=== PATIENT | female | born 1970 | race Caucasian/White ===

== ENCOUNTER 2022-06-21 07:16 | Inpatient (IN) | payer SELFPAY ==
[~2022-06-21] VITALS: Ht 167.4 cm; Wt 64.5 kg
[~2022-06-21 07:16] MED LIST: ALPR.5T PO; BENZ100C18 PO; CLON1TAB36 PO; CLON1TAB69; CLOT45CR46 TOP; DESOXIMETASONE EXT; DULO30CA PO; ESTR2TAB4 PO; GABA-488 PO; GEODON; HYDR-3720 PO; HYDR1CAP2 PO; HYDR50CA3 PO; KETO-22 PO; LNS30CCR; LORA-794 PO; LVT.15T PO; LVT.1T PO; MELO7.5T; METH4TAB PO; NYST1POW15 TOP; OMEP20CA6 PO; OTC COUGH MED; OXYC-12 PO; PANT20TA2 PO; PRD20T PO; PROP1TAB77 PO; RISP4TAB34 PO; SYNTHROID; TRAZ-144 PO; ZPR20C PO
[2022-06-21 07:34] LABS: HEMATOCRIT 39 % (35-52); HEMOGLOBIN 13.8 g/dL (11.5-16.0); MEAN CORPUSCULAR HEMOGLOBIN 31 pg (25-34); MEAN CORPUSCULAR HGB CONC 36 g/dL (32-36); MEAN CORPUSCULAR VOLUME 87 fL (80-99); MEAN PLATELET VOLUME 9.5 fL (9.0-12.2); PLATELET COUNT 290 10^3/uL (130-400); WHITE BLOOD COUNT 13.3 10^3/uL (4.3-11.0)
[2022-06-21] MEDS ORDERED: NALOXONE 0.4 MG/ML 1 ML (NARCAN) VIAL ONE (07:39)
[2022-06-21 07:44] LABS: ALBUMIN 4.4 GM/DL (3.2-4.5); CHLORIDE 105 MMOL/L (98-107); POTASSIUM 3.3 MMOL/L (3.6-5.0); SODIUM 140 MMOL/L (135-145)
[2022-06-21] MEDS ORDERED: NALOXONE 0.4 MG/ML 1 ML (NARCAN) VIAL IV ONE ×2 (07:45→08:15)
[2022-06-21] MEDS ORDERED: ONDANSETRON 4 MG/2 ML (SDV) Z0FRAN IVP ONE (07:45)
[2022-06-21 07:46] LABS: CALCIUM 9.3 MG/DL (8.5-10.1)
[2022-06-21 07:47] LABS: GLUCOSE 131 MG/DL (70-105); TOTAL PROTEIN 6.8 GM/DL (6.4-8.2)
[2022-06-21 07:48] LABS: CARBON DIOXIDE 22 MMOL/L (21-32)
[2022-06-21 07:49] LABS: BILIRUBIN,TOTAL 1.1 MG/DL (0.1-1.0)
[2022-06-21 07:50] LABS: ALKALINE PHOSPHATASE 64 U/L (40-136)
[2022-06-21 07:51] LABS: GFR ESTIMATED 88
[2022-06-21 07:52] LABS: BILIRUBIN,DIRECT 0.4 MG/DL (0.0-0.3); BILIRUBIN,INDIRECT 0.7 MG/DL; BUN/CREATININE RATIO 20
[2022-06-21 07:53] LABS: ALANINE AMINOTRANSFERASE 27 U/L (0-55)
[2022-06-21 07:57] LABS: BILIRUBIN,URINE NEGATIVE (NEGATIVE); CLARITY,URINE CLOUDY; COLOR,URINE ORANGE; GLUCOSE, URINE (UA) NEGATIVE (NEGATIVE); KETONES,URINE NEGATIVE (NEGATIVE); LEUKOCYTE ESTERASE ,URINE NEGATIVE (NEGATIVE); NITRITE,URINE NEGATIVE (NEGATIVE); PROTEIN,URINE NEGATIVE (NEGATIVE)
[2022-06-21] MEDS ORDERED: NS 100 ML (IVPB) BAG IV ONE (08:00)
[2022-06-21] MEDS ORDERED: NS IV 1000 ML 1,000 ML IV SCH (08:00)
[2022-06-21] MEDS ORDERED: HOLD METFORMIN - RECEIVED CONTRAST 20 ML VIAL IV SCH (08:00)
[2022-06-21] MEDS ORDERED: IOHEXOL 350 MG/ML 100 ML (OMNIPAQUE 350) VIAL IV ONE (08:00)
[2022-06-21 08:11] LABS: BACTERIA,URINE NEGATIVE /HPF; CALCIUM OXALATE CRYSTALS,UR FEW /LPF; HYALINE CASTS, URINE RARE /LPF; WBC,URINE 0-2 /HPF
[2022-06-21] MEDS ORDERED: NALOXONE 2 MG/2 ML (NARCAN) SYR ONE (08:11)
[2022-06-21 08:12] LABS: AMPHETAMINE SCREEN, URINE POSITIVE (NEGATIVE); BARBITURATE SCREEN URINE NEGATIVE (NEGATIVE); BENZODIAZEPINES SCREEN URINE POSITIVE (NEGATIVE); CANNABINOID SCREEN, URINE POSITIVE (NEGATIVE); COCAINE SCREEN URINE NEGATIVE (NEGATIVE); METHADONE STAT NEGATIVE (NEGATIVE); OPIATE SCREEN URINE NEGATIVE (NEGATIVE); OXYCODONE STAT NEGATIVE (NEGATIVE); PROPOXYPHENE STAT NEGATIVE (NEGATIVE); TRICYCLIC ANTIDEPRESSANTS SCRE POSITIVE (NEGATIVE)
[2022-06-21 08:14] LABS: FREE T4 (FREE THYROXINE) 1.22 NG/DL (0.70-1.48)
[2022-06-21] MEDS ORDERED: NALOXONE 2 MG/2 ML (NARCAN) SYR IV ONE (08:15)
--- NOTE | 2022-06-21 08:43 | Diagnostic Imaging Report ---
PROCEDURE: CT chest, abdomen, and pelvis with contrast. TECHNIQUE: Multiple contiguous axial images were obtained through the chest, abdomen, and pelvis after the administration of intravenous contrast. Auto Exposure Controls were utilized during the CT exam to meet ALARA standards for radiation dose reduction. INDICATION: "Trauma" CHEST: Sternum manubrium and diaphragm are intact. The visible shoulder, spine and ribs nonacute. No lung contusion, pneumothorax or hemothorax. No chest wall hematoma. The aorta is patent, intact and nonacute. There is no pericardial collection. There is a tiny hiatal hernia. No evidence for aspiration, lung contusion or pulmonary laceration. No lung mass or thoracic adenopathy. ABDOMEN PELVIS: The urinary bladder is catheterized. There is no abdominal pelvic intra or retroperitoneal hemorrhage. There is a gallstone present without features of cholecystitis. The liver, spleen, adrenals, pancreas all nonacute. The kidneys unobstructed and well-perfused. The atherosclerotic aorta is patent, nonaneurysmal and nonacute. No mesenteric or retroperitoneal lymphadenopathy. The bony pelvis shows no acute abnormality. There is lower lumbar spondylosis and facet arthrosis accounting for slight grade 1 degenerative anterolisthesis L4 and L5. No acute-appearing spinal pathology. IMPRESSION: No acute or posttraumatic sequelae identified at CT chest, abdomen or pelvis. Cholelithiasis. Lumbar degenerative disease. Dictated by: Dictated on workstation # [id number]
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
--- NOTE | 2022-06-21 08:57 | Diagnostic Imaging Report ---
PROCEDURE: CT head, face, and cervical spine without contrast. TECHNIQUE: Multiple contiguous axial images were obtained through the head, neck, and facial bones without the use of intravenous contrast. Sagittal and coronal reformations through the cervical spine and facial bones were also performed. Auto Exposure Controls were utilized during the CT exam to meet ALARA standards for radiation dose reduction. INDICATION: "Trauma" CT HEAD: There is very mild left paramedian frontal soft tissue scalp swelling. Underlying calvarium appeared intact. There is no hemo-sinus or pneumocephalus. There is no intracranial hemorrhage, hydrocephalus, cerebral edema, mass, mass effect or evidence for an elevation to the intracranial pressures. The basilar cisterns are patent. There is no sulcal effacement. The cardenas-white matter differentiations are maintained. FACIAL BONES: There is rightward nasal septal spurring and deviation, chronic. The nasal bones intact. The mandible and zygomatic arches as well as pterygoid plates and hard palate intact. The bony maxillary and orbital gonzalez intact. No hemo-sinus. No pneumocephalus. No orbital emphysema. There is no post septal or retrobulbar orbital hematoma. The anterior and posterior gonzalez of the frontal sinuses are intact. There is some left frontal scalp swelling. No hemo-sinus. CERVICAL SPINE: Body heights maintained. Alignment within normal limits. There is mid to lower cervical spondylosis and facet arthrosis, chronic. No high-grade bony canal stenosis. The central skull base intact and the craniocervical relationship unremarkable. No traumatic deformity to the tracheal cartilage structures of the larynx or hyoid bone. Pulmonary apices and thoracic inlet appeared nonacute. IMPRESSION: CT HEAD: No hemorrhage or acute intracerebral pathology. Left frontal soft tissue swelling noted. CT FACIAL BONES: No facial fracture or hemo-sinus. CT CERVICAL SPINE: Degenerative disease but no fracture or traumatic malalignment. Dictated by: Dictated on workstation # [id number]
[2022-06-21 10:00] LABS: MAGNESIUM 1.9 MG/DL (1.6-2.4)
[2022-06-21] MEDS ORDERED: ONDANSETRON 4 MG/2 ML (SDV) Z0FRAN IV PRN (11:00)
[2022-06-21] MEDS: D5 1/2 NS W/KCL 40 MEQ/L 1,000 ML IV SCH ×2 (11:15→18:30)
[2022-06-21] MEDS ORDERED: IBUP-1780 PO (11:52)
[2022-06-21] MEDS ORDERED: LEVO88TA54 PO (11:52)
[2022-06-21] MEDS ORDERED: LORA-404 PO (11:52)
[2022-06-21] MEDS ORDERED: CYCL10TA25 PO (11:52)
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
[2022-06-21] MEDS: LORazepam INJ 2 MG/ML (ATIVAN) VIAL IV PRN ×2 (12:50→19:17)
[2022-06-21] MEDS ORDERED: LEVOTHYROXINE 88 MCG (LEVOTHORID) TAB PO ONE (13:15)
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
[2022-06-22] MEDS: D5 1/2 NS W/KCL 40 MEQ/L 1,000 ML IV SCH ×2 (01:54→07:00)
[2022-06-22] MEDS: LORazepam INJ 2 MG/ML (ATIVAN) VIAL IV PRN ×2 (02:29→09:15)
[2022-06-22 03:40] LABS: BASOPHILS % (AUTO) 1 % (0-10); EOSINOPHILS # (AUTO) 0.2 10^3/uL (0.0-0.3); EOSINOPHILS % (AUTO) 4 % (0-10); HEMATOCRIT 34 % (35-52); HEMOGLOBIN 11.6 g/dL (11.5-16.0); LYMPHOCYTES # (AUTO) 1.5 10^3/uL (1.0-4.0); LYMPHOCYTES % (AUTO) 30 % (12-44); MEAN CORPUSCULAR HEMOGLOBIN 31 pg (25-34); MEAN CORPUSCULAR HGB CONC 34 g/dL (32-36); MEAN CORPUSCULAR VOLUME 90 fL (80-99); MEAN PLATELET VOLUME 9.8 fL (9.0-12.2); MONOCYTES # (AUTO) 0.4 10^3/uL (0.0-1.0); MONOCYTES % (AUTO) 7 % (0-12); NEUTROPHILS % (AUTO) 59 % (42-75); PLATELET COUNT 244 10^3/uL (130-400); WHITE BLOOD COUNT 5.2 10^3/uL (4.3-11.0)
[2022-06-22 03:58] LABS: POTASSIUM 3.6 MMOL/L (3.6-5.0)
[2022-06-22 03:59] LABS: CALCIUM 8.2 MG/DL (8.5-10.1)
[2022-06-22 04:03] LABS: CREATININE SERUM 0.81 MG/DL (0.60-1.30)
[2022-06-22] MEDS: MAGNESIUM 1 GM/100 ML IVPB 100 ML IV SCH ×2 (05:38→06:53)
[2022-06-22] MEDS: KCL 20 MEQ TAB (K-DUR) PO SCH ×2 (05:39→05:40)
[2022-06-22] MEDS ORDERED: NS IV 500 ML 500 ML IV PRN (06:00)
[2022-06-22] MEDS ORDERED: MAGNESIUM 1 GM/100 ML IVPB 100 ML IV SCH (06:00)
[2022-06-22] MEDS ORDERED: POTASSIUM CL 10MEQ/50ML IVPB 50 ML IV SCH (06:00)
[2022-06-22] MEDS ORDERED: LEVOTHYROXINE 88 MCG (LEVOTHORID) TAB PO SCH (06:30)
[2022-06-22] MEDS ORDERED: KCL 20 MEQ TAB (K-DUR) PO ONE (07:00)
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
--- NOTE | 2022-06-22 10:48 | Physical Therapy Progress Note ---
Therapy Progress Note Patient declined PT and is up independently with nursing staff. No skilled PT indicated. DAVID GRIFFITH PT Jun 22, 2022 10:48
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
[2022-06-22 16:41] VITALS: BP 131/73
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
== END 2022-06-22 17:31 | disposition home or self-care (01) | DRG 918 ==
LOC: EDUNIT# 07:16 → ER 07:17 → ICU 10:34
PROVIDERS: ADMIT Internal Medicine; ATTEND Internal Medicine
DX: T48.1X2A Poisoning by skeletal muscle relaxants [neuromuscular blocking agents], intentional self-harm, initial encounter (principal); T43.652A Poisoning by methamphetamines intentional self-harm, initial encounter; T42.4X2A Poisoning by benzodiazepines, intentional self-harm, initial encounter; T40.712A Poisoning by cannabis, intentional self-harm, initial encounter; S00.83XA Contusion of other part of head, initial encounter; R41.0 Disorientation, unspecified; F15.10 Other stimulant abuse, uncomplicated; F19.10 Other psychoactive substance abuse, uncomplicated; R68.0 Hypothermia, not associated with low environmental temperature; F12.10 Cannabis abuse, uncomplicated; F32.A Depression, unspecified; F17.210 Nicotine dependence, cigarettes, uncomplicated; E03.9 Hypothyroidism, unspecified; F41.9 Anxiety disorder, unspecified; K80.20 Calculus of gallbladder without cholecystitis without obstruction; H54.7 Unspecified visual loss; Z79.899 Other long term (current) drug therapy; S40.022A Contusion of left upper arm, initial encounter; S80.02XA Contusion of left knee, initial encounter; S80.01XA Contusion of right knee, initial encounter; X58.XXXA Exposure to other specified factors, initial encounter
CPT/HCPCS: 36415; 51702; 70450; 70486; 71260; 72125; 74177; 80048; 80076; 80306; 80320; 80329; 81000; 82550; 83735; 84439; 84443; 84703; 85025; 85027; 87081; 93005; 93041; 99291